=== PATIENT | male | born 1985 | race Caucasian/White ===

== ENCOUNTER 2016-09-13 13:53 | Emergency (ER) | payer OTHER ==
[~2016-09-13] VITALS: Ht 170.2 cm; Wt 82.5 kg
[2016-09-13 14:54] LABS: BASOPHIL COUNT 0.1 K/uL (0-0.1); EOSINOPHIL (%) 6.6 % (0-5); EOSINOPHIL COUNT 0.6 K/uL (0-0.3); HEMATOCRIT 44.9 % (38.0-50.0); IMMATURE GRANULOCYTE (%) 0.3 % (0.0-0.7); INSTRUMENT ABS NEUTROPHIL CT 5.2 K/uL; LYMPHOCYTE COUNT 2.2 K/uL (1.0-2.8); MCH 29.1 PG (29.0-34.0); MCHC 34.3 G/DL (30.0-36.0); MCV 84.7 FL (86-99); MEAN PLAT.VOLUME 9.6 uM^3 (9.0-12.4); MONOCYTE (%) 7.1 % (3-12); MONOCYTE COUNT 0.6 K/uL (0-0.8); NEUTROPHIL (%) 59.7 % (45-76); NEUTROPHIL COUNT 5.2 K/uL (1.8-6.4); PLATELET COUNT 343 K/uL (156-360); RBC DIS.WIDTH-CV 13.2 % (11.8-14.6); RBC DIS.WIDTH-SD 40.7 % (39-53); WHITE BLOOD COUNT 8.6 K/uL (4.1-10.2)
[2016-09-13 15:17] LABS: CHLORIDE 105 mEq/L (99-109); POTASSIUM 4.4 mEq/L (3.7-5.4); SODIUM 139 mEq/L (136-147)
[2016-09-13 15:19] LABS: GLUCOSE 81 mg/dL (70-99)
[2016-09-13 15:20] LABS: ANION GAP 13 MEQ/L (2-14)
[2016-09-13 15:23] LABS: GFR ESTIMATE (CALCULATED) > 59 mL/min/
[2016-09-13] MEDS ORDERED: PERCOCET 5/31 TABLET PO (15:23)
[2016-09-13 15:24] LABS: UREA NITROGEN (BUN) 14 mg/dL (9-23)
[2016-09-13 15:46] VITALS: BP 150/87
== END 2016-09-13 15:47 | disposition home or self-care (01) ==
LOC: EME 13:53
PROVIDERS: Nurse Practitioner Family
DX: R59.0 Localized enlarged lymph nodes (principal); M54.9 Dorsalgia, unspecified; Z85.828 Personal history of other malignant neoplasm of skin
CPT/HCPCS: 71020; 80048; 85025; 99281; 99284